=== PATIENT | female | born 1985 | race American Indian/Alaskan Native ===

== ENCOUNTER 2016-10-12 08:19 | Emergency (ER) | payer SELFPAY ==
[2016-10-12 08:52] VITALS: BP 130/82
[2016-10-12 09:19] LABS: Basophils % (Auto) 0.4 % (0.0-1.8); Eosinophils % (Auto) 3.9 % (0.0-4.3); Hemoglobin 11.7 gm/dl (10.1-14.3); Mean Corpuscular HGB Conc 34 % (30-34); Mean Corpuscular Hemoglobin 31 pg (28-32); Mean Corpuscular Volume 90 fl (79-97); Platelet Count 211 K/mm3 (140-440); Red Blood Count 3.78 M/mm3 (3.65-5.03); Red Cell Distribution Width 12.3 % (13.2-15.2); White Blood Count 12.5 K/mm3 (4.5-11.0)
[2016-10-12 09:25] LABS: Anion Gap 17 mmol/L; BUN/Creatinine Ratio 8.33; Blood Urea Nitrogen 5 mg/dL (7-17); Carbon Dioxide 23 mmol/L (22-30); Chloride 100.5 mmol/L (98-107); Glucose 93 mg/dL (65-100); Sodium 136 mmol/L (137-145)
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
== END 2016-10-12 11:14 | disposition home or self-care (01) ==
LOC: ED 08:19
DX: O26.892 Other specified pregnancy related conditions, second trimester (principal); R10.30 Lower abdominal pain, unspecified; Z87.891 Personal history of nicotine dependence; Z3A.18 18 weeks gestation of pregnancy; V49.9XXA Car occupant (driver) (passenger) injured in unspecified traffic accident, initial encounter; Y92.488 Other paved roadways as the place of occurrence of the external cause; Y93.89 Activity, other specified; Y99.8 Other external cause status
CPT/HCPCS: 36415; 76805; 76817; 80048; 84702; 85025

== ENCOUNTER 2017-02-25 09:24 | Outpatient (CLI) | payer MEDICAID ==
[2017-02-25 09:52] VITALS: BP 103/62
== END 2017-02-25 10:20 | disposition home or self-care (01) ==
LOC: TRG 09:24
PROVIDERS: ATTEND Obstetrics & Gynecology
DX: O47.1 False labor at or after 37 completed weeks of gestation (principal); Z3A.38 38 weeks gestation of pregnancy
CPT/HCPCS: 59025

== ENCOUNTER 2017-03-07 09:18 | Outpatient (CLI) | payer MEDICAID ==
[2017-03-07 10:08] VITALS: BP 110/58
[2017-03-07] MEDS ORDERED: ROBITUSSIN DM PO ONE (10:30)
[2017-03-07 10:37] LABS: Bilirubin,Urine NEG (Negative); Blood,Urine NEG (Negative); Ketones,Urine NEG (Negative); Leukocyte Esterase,Urine SM (Negative); Mucus,Urine 2+ /HPF; Nitrite,Urine NEG (Negative); Protein,Urine <15 mg/dL mg/dL (Negative); Urobilinogen,Urine < 2.0 mg/dL (<2.0)
--- NOTE | 2017-03-07 10:39 | Ultrasound Report ---
OB LIMITED INDICATION: well being, DELPHINE. COMPARISON: 10/12/2016 TECHNIQUE: Transabdominal grayscale ultrasound with Doppler interrogation. Gestation: Garber Position: Cephalic Amniotic Fluid: WNL (7-24 cm) DELPHINE = 11.7 cm Heart Rate: 135 BPM
== END 2017-03-07 11:17 | disposition home or self-care (01) ==
LOC: TRG 09:18
PROVIDERS: ATTEND Obstetrics & Gynecology
DX: O47.1 False labor at or after 37 completed weeks of gestation (principal); Z3A.38 38 weeks gestation of pregnancy
CPT/HCPCS: 59025; 76815; 81001

== ENCOUNTER 2017-03-07 23:00 | Inpatient (IN) | payer MEDICAID ==
[~2017-03-07 23:00] MED LIST: LACTATED RINGERS 1,000 ML ONE; POLYCILLIN/NS 2 GM/100 ML 2 GM/100 ML BAG IV ONE
[2017-03-07] MEDS ORDERED: PITOCin/NS 20 UNIT/1000ML DRIP 20,000 MILLIUNITS/1,000 ML BAG IV ONE (23:11)
[2017-03-07] MEDS ORDERED: SUBLIMAZE ONE ×2 (23:13→23:16)
[2017-03-07] MEDS ORDERED: SUBLIMAZE IV ONE (23:21)
--- NOTE | 2017-03-07 23:59 | History and Physical Report ---
History of Present Illness Date of admission: 03/07/17 23:05 History of present illness: Patient presents presents to labor and delivery complaints of regular contractions. Initial exam by RN revealed the patient was 9 cm dilated Menstrual History Regularity: regular Menses every: 28 days Duration: 5-60days LMP: 06/09/2016 LMP reliability: month known LMP character: normal test type: urine test Date: 11/20/2016 BC at conception: none Planned ? no EDC Calculations LMP: 03/16/2017 EDC Confirmation: 03/16/2017 Past History : 6 Term Births: 1 Premature Births: 2 Living Children: 2 Para: 3 Aborta: 2 Elect. Ab: 2 Spont. Ab: 0 Ectopics: 0 # 1 Delivery date: 2003 Delivery type: EAB Delivery location: - # 2 Delivery date: 05/14/2005 Weeks Gestation: 24-28 Delivery type: Hours of labor: ? Delivery location: [facility] Sex: weight: ? Comments: IUFD induction; pt unsure of exact weeks but sure its was 6-7 months # 3 Delivery date: 2005 Weeks Gestation: - Delivery type: EAB Hours of labor: - Anesthesia type: - Delivery location: - Infant Sex: - weight: - Name: - # 4 Delivery date: 11/21/2008 Weeks Gestation: 40 labor: no Delivery type: Hours of labor: 12 Anesthesia type: epidural Delivery location: [place] Infant Sex: Male weight: ? Name: Ye # 5 Delivery date: 06/01/2010 Weeks Gestation: 37 labor: no Delivery type: Hours of labor: 7 Anesthesia type: epidural Delivery location: [place] Infant Sex: Female weight: ? 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 of genital herpes: no Genetic History Congenital Heart Defect: Mom: no Dad: no Deysi Disease: Mom: no Dad: no Thalassemia Mom: no Dad: no Neural Tube Defect Mom: no Dad: no Down's Syndrome Mom: no Dad: no Atul-Sachs Mom: no Dad: no Sickle Cell Disease/Trait Mom: no Dad: no Hemophilia Mom: no Dad: no Muscular Dystrophy Mom: no Dad: no Cystic Fibrosis Mom: no Dad: no Carlotta Chorea Mom: no Dad: no Mental Retardation Mom: no Dad: no Fragile X Mom: no Dad: no Other Genetic/Chromosomal Disorder Mom: no Dad: no Child w/other defect Mom: no Dad: no Current Allergies (reviewed today): No known allergies Past History Past Medical History: other (See HPI) Past Surgical History: other (See HPI) 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) Social history: other (See HPI) - Obstetrical History : 6 Para: 3 Hx # Term Pregnancies: 2 Number of Pregnancies: 1 Spontaneous Abortions: 0 Induced : 2 Number of Living Children: 2 Medications and Allergies Allergies Allergy/AdvReac Type Severity Reaction Status Date / Time No Known Allergies Allergy Verified 01/20/15 09:23 Home Medications Medication Instructions Recorded Confirmed Last Taken Type Amoxicillin/K Clav Oral Liqd 10 ml PO BID #200 ml 01/20/15 Unknown Rx [Augmentin Oral Liqd] HYDROcodone/ACETAMINOPHEN [Lortab 15 ml PO Q4-6H PRN #300 ml 01/20/15 Unknown Rx 10 mg-300 mg per 15 ML ORAL LIQ] Cyclobenzaprine [Flexeril] 10 mg PO TID PRN #20 tablet 04/05/16 Unknown Rx HYDROcodone/APAP 5-325 [[place] 1 each PO Q6HR PRN #8 tablet 04/05/16 Unknown Rx 5/325] Ibuprofen [Motrin 800 MG tab] 800 mg PO Q8HR PRN #30 tablet 04/05/16 Unknown Rx HYDROcodone/APAP 5-325 [[place] 1 each PO Q6HR PRN #8 tablet 10/12/16 Unknown Rx 5/325] - Vital Signs Vital signs: Vital Signs Temp Resp 97.9 F 24 03/07/17 23:16 03/07/17 23:16 Temp Pulse Resp BP Pulse Ox 97.9 F 94 H 24 113/64 03/07/17 23:16 03/07/17 23:23 03/07/17 23:16 03/07/17 23:23 - Physical Exam Breasts: Positive: deferred Cardiovascular: Regular rate Abdomen: Positive: normal appearance, soft Genitourinary (Female): Positive: normal external genitalia, normal perenium Vagina: Positive: normal moisture Uterus: Positive: enlarged Anus/Rectum: Positive: normal perianal skin Extremities: Positive: edema - Obstetrical FHR: category 1 Results All other labs normal. Assessment and Plan - Patient Problems (1) Active labor at term Current Visit: Yes Status: Acute Plan to address problem: Admitted to labor and delivery and anticipate vaginal delivery soon (2) History of labor Current Visit: Yes Status: Chronic (3) Carrier of group B Streptococcus Current Visit: Yes Status: Acute Plan to address problem: We'll give and a robotic prophylaxis and inform nursery
[2017-03-08] MEDS ORDERED: ROBITUSSIN DM PO PRN (00:06)
[2017-03-08] MEDS ORDERED: POLYCILLIN/NS 2 GM/100 ML 2 GM/100 ML BAG IV ONE (00:06)
[2017-03-08] MEDS ORDERED: XYLOCAINE 2% INFILTRATI ONE (00:06)
[2017-03-08] MEDS ORDERED: MINERAL OIL PO PRN (00:06)
[2017-03-08] MEDS ORDERED: PHENERGAN PO PRN ×2 (00:06→01:26)
--- NOTE | 2017-03-08 00:16 | Procedure Note ---
OB Delivery Note - Delivery Date of Delivery: 03/07/17 Surgeon: MERLIN LEROY Estimated blood loss: 300cc - Vaginal Delivery position: OA Intrapartum events: none Delivery induction: none Delivery monitor: external FHT, external uterine Route of delivery: Delivery placenta: spontaneous Episiotomy: none Delivery laceration: 1st degree (periurethral) Anesthesia: intravenous - Infant A at 1 minute: 8 at 5 minutes: 9 Gender: Male
[2017-03-08 00:53] LABS: Hematocrit 36.8 % (30.3-42.9); Hemoglobin 12.5 gm/dl (10.1-14.3); Mean Corpuscular HGB Conc 34 % (30-34); Mean Corpuscular Hemoglobin 30 pg (28-32); Mean Corpuscular Volume 87 fl (79-97); Platelet Count 230 K/mm3 (140-440); Red Blood Count 4.23 M/mm3 (3.65-5.03); Red Cell Distribution Width 13.6 % (13.2-15.2); White Blood Count 13.6 K/mm3 (4.5-11.0)
[2017-03-08] MEDS ORDERED: LACTATED RINGERS 1,000 ML IV SCH (01:00)
[2017-03-08] MEDS ORDERED: PITOCin/NS 20 UNIT/1000ML DRIP 20 UNITS/1,000 ML BAG IV SCH (01:00)
[2017-03-08] MEDS: ROBITUSSIN DM PO PRN ×3 (01:21→15:03)
[2017-03-08] MEDS ORDERED: LANSINOH TP PRN (01:26)
[2017-03-08] MEDS ORDERED: NORCO 5/325 PO PRN (01:26)
[2017-03-08] MEDS ORDERED: MILK OF MAGNESIA PO PRN (01:26)
[2017-03-08] MEDS ORDERED: BENADRYL PO PRN (01:26)
[2017-03-08] MEDS ORDERED: DULCOLAX PR PRN (01:26)
[2017-03-08] MEDS ORDERED: TYLENOL PO PRN (01:26)
[2017-03-08] MEDS ORDERED: SODIUM CHLORIDE FLUSH SYRINGE 10 ML IV PRN (01:26)
[2017-03-08] MEDS: TUCKS PAD TP PRN (03:20)
[2017-03-08] MEDS: MOTRIN PO SCH ×4 (03:25→23:24)
[2017-03-08] MEDS ORDERED: BOOSTRIX IM ONE (06:00)
[2017-03-08] MEDS: COLACE PO SCH ×2 (08:58→22:22)
[2017-03-08] MEDS: PRENATAL VITAMIN PO SCH (08:58)
--- NOTE | 2017-03-08 10:27 | Progress Note ---
Assessment and Plan Pt doing well No c/o voiced P: continue pathway d/c tomorrow Subjective - Subjective Date of service: 03/08/17 (no c/o voiced) Principal diagnosis: 8 hours s/p vaginal delivery Patient reports: appetite normal, voiding normally, pain well controlled, ambulating normally [place]: doing well Objective - Vital Signs Latest vital signs: Vital Signs Temp Pulse Resp BP Pulse Ox 03/08/17 08:35 97.8 F 79 18 109/61 03/08/17 03:25 16 03/08/17 02:30 98.2 F 89 20 112/71 03/08/17 01:03 81 99 03/08/17 00:58 93 H 99 03/08/17 00:55 90 110/64 03/08/17 00:53 76 100 03/08/17 00:40 94 H 108/59 03/08/17 00:25 78 107/60 03/08/17 00:14 98.1 F 20 03/08/17 00:10 93 H 116/65 03/08/17 00:00 100 H 112/62 03/07/17 23:23 94 H 113/64 03/07/17 23:18 24 03/07/17 23:16 97.9 F 24 Intake and Output 03/07/17 03/08/17 03/08/17 22:59 06:59 14:59 Intake Total 240 240 Output Total 500 Balance -260 240 Intake: Oral 240 240 Output: Urine 500 Void 500 Other: Total, Intake Amount 240 240 Total, Output Amount 500 Weight 200 lb Estimated Blood Loss 300 - Exam Breasts: Present: normal, Cardiovascular: Present: Regular rate Lungs: Present: Normal air movement Abdomen: Present: normal appearance, soft Uterus: Present: normal, firm, fundal height below umbilicus Extremities: Present: normal Incision: Present: normal, dry, intact - Labs Labs: Abnormal lab results 03/07/17 Range/Units 23:00 WBC 13.6 H (4.5-11.0) K/mm3
[2017-03-08 14:22] LABS: Hematocrit 34.5 % (30.3-42.9); Hemoglobin 11.4 gm/dl (10.1-14.3)
[2017-03-09] MEDS: MOTRIN PO SCH ×3 (05:33→21:23)
--- NOTE | 2017-03-09 08:28 | Progress Note ---
Assessment and Plan Patient doing well, no complaints. desires d/c home today. Mitali peña, VSSAF , H&H 11.4/34.5, well. Plan for d/c home w/ routine f/u in office. - Patient Problems (1) Vaginal delivery Current Visit: Yes Status: Acute Subjective - Subjective Date of service: 03/09/17 Principal diagnosis: day #1 s/p Patient reports: appetite normal, voiding normally, pain well controlled, ambulating normally, no dizzy ambulation, no nauseated [place]: doing well, nursing well Objective - Vital Signs Latest vital signs: Vital Signs Temp Pulse Resp BP 03/09/17 01:40 98 F 76 20 115/59 03/08/17 16:20 98.2 F 73 18 115/62 03/08/17 12:30 97.5 F L 81 18 113/66 03/08/17 08:35 97.8 F 79 18 109/61 Intake and Output 03/08/17 03/09/17 03/09/17 22:59 06:59 14:59 Intake Total 480 240 Balance 480 240 Intake: Oral 480 Intake, Free Water 240 Other: Total, Intake Amount 240 # Voids Void 1 1 - Exam Breasts: Present: normal, Cardiovascular: Present: Regular rate Lungs: Present: Clear to auscultation, Normal air movement Abdomen: Present: normal appearance, soft, normal bowel sounds Vulva: both: normal Uterus: Present: normal, firm, fundal height at umbilicus Extremities: Present: normal Deep Tendon Reflex Grade: Normal +2 Incision: Present: normal, dry, intact
--- NOTE | 2017-03-09 08:30 | Discharge Summary ---
Providers - Providers Date of Admission: 03/07/17 23:05 Date of discharge: 03/09/17 (desires d/c home) Attending physician: MERLIN LEROY 03/08/17 01:26 Consult to [employer] [CONS] Routine Reason For Exam: assistance with , SNS Primary care physician: MERLIN LEROY Hospitalization Reason for admission: active labor Delivery: Episiotomy: none Laceration: 1st degree Incision: normal, dry, intact Other procedures: none complications: none Discharge diagnosis: IUP at term delivered [place] baby: male Hospital course: uncomplicated vaginal Condition at discharge: Good Disposition: DC-01 TO HOME OR SELFCARE - Discharge Diagnoses (1) Vaginal delivery Status: Acute Plan - Discharge Medications Prescriptions: Ibuprofen [Motrin 800 MG tab] 800 mg PO Q8HR PRN #30 tablet PRN Reason: Pain Lidocain2.5%/Prilocai2.5% [Emla] 5 gm TP ONCE PRN #1 tube PRN Reason: Pain - Provider Discharge Summary Activity: routine, no sex for 6 weeks, no heavy lifting 4 weeks, no strenuous exercise Diet: routine Instructions: routine Additional instructions: [] Smoking cessation referral if applicable(refer to patient education folder for contact #) [] Refer to [facility]'s [facility] Booklet Call your doctor immediately for: * Fever > 100.5 * Heavy vaginal bleeding ( >1 pad per hour) * Severe persistent headache * Shortness of breath * Reddened, hot, painful area to leg or breast * Drainage or odor from incision. * Keep incision clean and dry at all times and follow doctor's instructions regarding bathing/showering - Follow up plan Follow up: MERLIN LEROY MD [Primary Care Provider] - 7 Days (Congratulations! Please call [phone] to schedule your son's circumcision in 1 week and your visit in 4 weeks. Bring EMLA cream to your son's appointment and await further instructions. Call for any questions or concerns. )
[2017-03-09] MEDS: PRENATAL VITAMIN PO SCH (09:21)
[2017-03-09] MEDS: COLACE PO SCH ×2 (09:21→21:23)
[2017-03-09] MEDS: ROBITUSSIN DM PO PRN ×3 (09:24→21:29)
[2017-03-09] MEDS: TUCKS PAD TP PRN (13:27)
[2017-03-09 18:46] VITALS: BP 104/63
[2017-03-10] MEDS ORDERED: BOOSTRIX IM ONE (06:00)
== END 2017-03-09 23:35 | disposition home or self-care (01) | DRG 775 ==
LOC: TRG 23:00 → LD 23:05 → OB 03-08 01:08
PROVIDERS: ADMIT Obstetrics & Gynecology; ATTEND Obstetrics & Gynecology
PROC: 10E0XZZ Delivery of Products of Conception, External Approach (ICD-10-PCS; principal; 2017-03-07)
PROC: 0HQ9XZZ Repair Perineum Skin, External Approach (ICD-10-PCS; 2017-03-07)
DX: O99.824 Streptococcus B carrier state complicating childbirth (principal); Z37.0 Single live birth; Z72.89 Other problems related to lifestyle; Z3A.38 38 weeks gestation of pregnancy; O70.0 First degree perineal laceration during delivery
CPT/HCPCS: 36415; 85014; 85018; 85027; 86592; 86850; 86900; 86901; 99211; G0463; J0290; J2590; J3010; J7120